=== PATIENT | female | born 1955 | race Two or more races ===

== ENCOUNTER 2025-06-22 09:30 | Inpatient (IN) | payer OTHER ==
[~2025-06-22] VITALS: Ht 157.5 cm; Wt 68.0 kg
[2025-06-22] MEDS ORDERED: ROSUVASTATIN CA10 MG PO (11:01)
[2025-06-22] MEDS ORDERED: VASOTEC20 M1 PO (11:01)
[2025-06-22] MEDS ORDERED: NORVASC5 MG PO (11:01)
[2025-06-22] MEDS ORDERED: ALENDRONATE SOD70 MG PO (11:02)
[2025-06-22] MEDS ORDERED: LATANOPROST2.5 ML OP (11:02)
[2025-06-22] MEDS ORDERED: BROMSITE5 ML OP (11:03)
[2025-06-22 11:04] VITALS: BP 170/82
[2025-06-22 11:04] LABS: URINE APPEARANCE Clear; URINE BILIRRUBIN Negative (NEGATIVE); URINE BLOOD Negative; URINE COLOR Yellow; URINE GLUCOSE Negative (NEGATIVE); URINE KETONE Negative (NEGATIVE); URINE LEUKOCYTE Negative; URINE NITRATE Negative; URINE PROTEIN Negative (NEGATIVE); URINE UROBILINOGEN 0.2 E.U./dl
[2025-06-22 11:09] LABS: URINE BACTERIA 25.1 uL (0.0-1933); URINE EPITHELIAL CELLS 2.1 uL (0.0-38.8); URINE RBC 15.5 uL (0.0-20.8)
[2025-06-22 11:16] LABS: URINE CAST 0.14 uL (0.0-1.40); URINE WBC 1.6 uL (0.0-23.2)
[2025-06-22 11:32] LABS: BASO % 0.7 % (0.1-1.2); EOS # 0.07 (0.04-0.54); EOS % 1.0 % (0.7-7.0); LYMPH # 2.43 (1.18-3.74); LYMPH % 36.4 % (19.3-53.1); MEAN PLATELET VOLUME 10.20 fl (9.4-12.4); MONO # 0.48 (0.24-0.82); MONO % 7.2 % (4.7-12.5); NEUT # 3.63 (1.56-6.13); NEUT % 54.6 % (34.0-71.1); RED CELL DISTRIBUTION WIDTH 13.0 % (11.6-14.4)
[2025-06-22 11:36] LABS: INR 0.97
[2025-06-22 12:05] LABS: ALT/SGPT 22.0 U/L (12-78); AST/SGOT 21.0 U/L (15-37); BILIRUBIN TOTAL 0.39 mg/dL (0.3-1.2); BUN CREA RATIO 24.0 (7.0-25.0); CREATININE SERUM 0.5 mg/dL (0.55-1.02); GFR 122.33; GLOBULINA 3.5 G/DL (2.4-3.5); GLUCOSE FASTING 91.0 mg/dL (65-100); OSMOLALITY SERUM 282.0 MOSM/KG (275-295)
[2025-06-27] MEDS ORDERED: METRONIDAZOLE/SODIUM CHLORIDE 500 MG/100 ML PIGGYBACK IV ONE (08:30)
[2025-06-27] MEDS ORDERED: BUPIVACAINE HCL 30 ML VIAL IJ ONE (08:30)
[2025-06-27] MEDS ORDERED: levoFLOXacin IN DEXTROSE 5 % 5 MG/ML PIGGYBAG IV ONE (08:30)
[2025-06-27] MEDS ORDERED: LIDOCAINE HCL 1%/EPINEPHRINE 20ML VIAL IJ ONE (08:30)
[2025-06-27] MEDS ORDERED: MORPHINE SULFATE 4 MG/ML VIAL IV ONE ×2 (11:45→12:15)
[2025-06-27] MEDS ORDERED: ONDANSETRON HCL 2 MG/ML VIAL IV PRN (12:00)
[2025-06-27] MEDS ORDERED: MORPHINE SULFATE 4 MG/ML CARTRIDGE IV PRN (12:00)
[2025-06-27] MEDS ORDERED: OxyCODONE HCL 5 MG TABLET (ROXICODONE) PO PRN (12:00)
[2025-06-27] MEDS ORDERED: RINGERS SOLUTION,LACTATED 1,000 ML IV SCH (12:00)
[2025-06-27] MEDS ORDERED: HYOSCYAMINE SULFATE 0.125 MG TAB.SUBL SL SCH (13:00)
[2025-06-27 13:52] LABS: BASO % 0.2 % (0.1-1.2); EOS # 0.00 (0.04-0.54); EOS % 0.0 % (0.7-7.0); LYMPH # 0.74 (1.18-3.74); LYMPH % 5.6 % (19.3-53.1); MEAN PLATELET VOLUME 9.60 fl (9.4-12.4); MONO # 0.57 (0.24-0.82); MONO % 4.4 % (4.7-12.5); NEUT # 11.72 (1.56-6.13); NEUT % 89.5 % (34.0-71.1); RED CELL DISTRIBUTION WIDTH 12.7 % (11.6-14.4)
[2025-06-27] MEDS ORDERED: ACETAMINOPHEN 500 MG GEL..CAP PO SCH (14:00)
[2025-06-27 16:00] VITALS: BP 167/67; O2SAT 95
[2025-06-27] MEDS ORDERED: POLYETHYLENE GLYCOL 3350 17 GM BLIST.PACK PO SCH (17:00)
[2025-06-27] MEDS ORDERED: GABAPENTIN 300 MG CAPSULE PO SCH (17:00)
[2025-06-27 19:30] VITALS: BP 161/77
[2025-06-27] MEDS ORDERED: FAMOTIDINE/PF 20 MG/2 ML VIAL IV PUSH SCH (21:00)
[2025-06-28 01:25] VITALS: BP 145/62; O2SAT 95
[2025-06-28 07:51] LABS: BASO % 0.4 % (0.1-1.2); EOS # 0.02 (0.04-0.54); EOS % 0.2 % (0.7-7.0); LYMPH # 2.67 (1.18-3.74); LYMPH % 26.0 % (19.3-53.1); MEAN PLATELET VOLUME 9.50 fl (9.4-12.4); MONO # 0.83 (0.24-0.82); MONO % 8.1 % (4.7-12.5); NEUT # 6.65 (1.56-6.13); NEUT % 64.9 % (34.0-71.1); RED CELL DISTRIBUTION WIDTH 12.6 % (11.6-14.4)
[2025-06-28 08:56] LABS: BUN CREA RATIO 9.0 (7.0-25.0); CREATININE SERUM 0.53 mg/dL (0.55-1.02); GFR 114.38; GLUCOSE FASTING 105.0 mg/dL (65-100); OSMOLALITY SERUM 283.0 MOSM/KG (275-295)
[2025-06-28] MEDS ORDERED: ENALAPRIL MALEATE 20 MG TABLET PO SCH (09:00)
[2025-06-28] MEDS ORDERED: LACTOBACILLUS ACIDOPHILUS 1 CAP CAP PO SCH (09:00)
[2025-06-28] MEDS ORDERED: AMLODIPINE BESYLATE 5 MG TABLET PO SCH (09:00)
[2025-06-28 10:20] VITALS: BP 118/71; O2SAT 96
[2025-06-28 16:36] VITALS: BP 139/78; O2SAT 97
[2025-06-28] MEDS ORDERED: ENOXAPARIN SODIUM 40 MG/0.4 ML SYRINGE SUBCUTANEO SCH (17:00)
[2025-06-29 01:42] VITALS: BP 152/76; O2SAT 97
[2025-06-29 08:00] VITALS: BP 150/70; O2SAT 96
[2025-06-29] MEDS ORDERED: ENOXAPARIN SODIUM 40 MG/0.4 ML SYRINGE SUBCUTANEO SCH (09:00)
[2025-06-29 17:42] VITALS: BP 152/81; O2SAT 98
== END 2025-06-29 22:36 | disposition home or self-care (01) | DRG 331 ==
LOC: SURG 06-27 09:30 → O/R 06-27 10:04 → SURH 06-27 10:04 → SURG 06-27 11:15 → SURH 06-27 12:43
PROVIDERS: ADMIT Surgery; ATTEND Surgery
PROC: 0DBP4ZZ Excision of Rectum, Percutaneous Endoscopic Approach (ICD-10-PCS; 2025-06-27)
PROC: 0DJD8ZZ Inspection of Lower Intestinal Tract, Via Natural or Artificial Opening Endoscopic (ICD-10-PCS; 2025-06-27)
PROC: 07BB4ZZ Excision of Mesenteric Lymphatic, Percutaneous Endoscopic Approach (ICD-10-PCS; 2025-06-27)
PROC: 0DTN4ZZ Resection of Sigmoid Colon, Percutaneous Endoscopic Approach (ICD-10-PCS; principal; 2025-06-27 11:15)
DX: C20 Malignant neoplasm of rectum (principal)